=== PATIENT | male | born 1970 | race Caucasian/White ===

== ENCOUNTER 2025-10-22 11:27 | Outpatient (CLI) | payer MEDICARE, SELFPAY ==
--- NOTE | 2025-10-22 11:45 | USCV_ITS ---
Daquan Rios Age: 55 Gender: M : 1970 Exam Date: 10/22/2025 11:39 Ordering Phys: Nora Solorzano MD Technologist: MYRON Exam Location: [facility] [place] Indication: carotid stenosis Risk Factors: Previous Vascular Surgery: Right Brachial BP: / Left Brachial BP: / Right Left Velocity (cm/s) Spectral Plaque Velocity (cm/s) Spectral Plaque Syst/Diast Broadening Syst/Diast Broadening 113.50/24.10 Prox CCA 90.20 / 20.30 102.50/22.40 Mid CCA 84.00 / 22.80 80.10/ 23.30 Distal CCA 80.40 / 28.20 72.80/ 31.30 Prox ICA 51.10 / 17.10 70.50/ 29.80 Mid ICA 58.90 / 24.50 64.30/ 29.40 Distal ICA 50.80 / 22.10 65.10 ECA 40.80 0.90 ICA/CCA 0.70 Antegrade Vertebral Antegrade 48.20/ 17.20 cm/s 47.10/ 14.70 cm/s Tri Subclavian Tri 114.5 145.8 0 0 CONCLUSIONS Right ICA stenosis <50%. Mild atheromatous plaque right carotid bulb/ICA. Left ICA stenosis <50%. Mild atheromatous plaque left carotid bulb/ICA. Intimal thickening in the common carotid arteries and internal carotid arteries bilaterally. Normal antegrade Doppler flow noted in the right vertebral artery. Normal antegrade Doppler flow noted in the left vertebral artery. Hector Kat MD (Electronically Signed) Final Date: 22 October 2025 14:59 S
== END 2025-10-22 11:28 | disposition home or self-care (01) ==
LOC: RAD 11:30
PROVIDERS: PCP Family Medicine; Visit Provider Family Medicine
DX: I65.23 Occlusion and stenosis of bilateral carotid arteries (principal)
CPT/HCPCS: 93880

== ENCOUNTER → 2025-11-16 11:16 | Outpatient (BNVA) | payer MEDICARE, SELFPAY | PROVIDERS: PCP Family Medicine; Visit Provider Family Medicine | DX: R19.4 Change in bowel habit (principal); K64.9 Unspecified hemorrhoids; K58.1 Irritable bowel syndrome with constipation | CPT/HCPCS: 80053; 85025 ==